=== PATIENT | female | born 2000 | race Two or more races ===

== ENCOUNTER 2023-02-01 14:18 | Emergency (ER) | payer MEDICAID ==
[~2023-02-01] VITALS: Ht 149.9 cm; Wt 65.8 kg
[2023-02-01 14:47] VITALS: BP 140/75; PULSE 80; RESP 16; TEMP 98.6; O2SAT 99
--- NOTE | 2023-02-01 16:54 | NUR ---
MANNEQUIN MOLDER ASSESSMENT REVIEWED BY LANDY RN; APPROVED
== END 2023-02-01 16:55 | disposition left against medical advice (07) ==
LOC: ER 14:19
DX: R21 Rash and other nonspecific skin eruption (principal); Z53.21 Procedure and treatment not carried out due to patient leaving prior to being seen by health care provider
CPT/HCPCS: 99281

== ENCOUNTER 2024-09-02 14:25 | Emergency (ER) | payer MEDICAID ==
[~2024-09-02] VITALS: Ht 149.9 cm; Wt 76.1 kg
--- NOTE | 2024-09-02 16:19 | ELECTROCARDIOGRAPH REPORT ---
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 Christian Stubbs Measurements Intervals [place] Rate: 102 P: 68 MS: 122 QRS: 20 QRSD: 89 T: 31 QT: 363 QTc: 473 Interpretive Statements Fast sinus arrhythmia Borderline T wave abnormalities Electronically Signed On 09-03-2024 6:49:[address] Christian Stubbs Please click the below link to view image of tracing.
--- NOTE | 2024-09-02 16:38 | Physician Documentation ---
History of Present Illness ~ Chief Complaint: Arm Pain Stated Complaint: LEFT ARM AND CHEST PAIN Time Seen by MD: 16:21 OK to notify your PCP?: Yes Source: patient Mode of Arrival: POV Exam Limitations: no limitations HPI Luz is a 24-year-old female presenting with left chest pain which radiates into her left arm. She has been experiencing this on and off for the past 2 years and sometimes it is the right chest wall. She is currently not having any symptoms as it has passed. She reports that she has these episodes the last about 5 minutes daily but are more frequent during certain times of her menstrual cycle. She takes deep breaths and tries to calm down and that gets episode does subside. She describes episode as chest tightness and shortness of breath and feeling impending doom. She reports having a history of anxiety but has not taken any medications for this. She believe she may have experienced a panic attack in the past. She denies any sudden onset/termination of tachycardia, palpitations or syncope. She has full range of motion of her extremities. She also has a ankle wrap on her right ankle after she stepped wrong when trying to walk and heels 3 days ago. She reports that the pain is improving and she is able to walk with no problem. Tetanus within 5 years: Yes Medication Reconciliation Allergies: Coded Allergies: No Known Allergies (Unverified , 02/01/23) Review of Systems All Other Systems at this time: Reviewed and Negative Physical Exam Vital Signs: RN Vital Signs have been reviewed: Yes, Temperature: 98.5, Source: Oral, Heart Rate: 90, Respiratory Rate: 18, BP: 143/75, Pulse Oximetry: 98, Weight: 76.090 Pulse Oximetry Reflects: adequate oxygenation Physical Exam General: Alert, no apparent distress. HEENT: PERRL, EOMI, no injection, moist mucous membranes. Neck: Full range of motion. Respiratory: Lungs clear, no respiratory distress. Chest: No accessory muscle use. Nontender to palpation Cardiovascular: Regular rate and rhythm, no murmurs. Gastrointestinal: Soft, nontender, nondistended. Bowels sounds present. Extremities: Normal range of motion, no deformity. Full range of motion of right ankle and upper extremities. Right ankle is nontender, good CSM, dorsalis pedis pulse 2 +. Neurologic: Oriented x4. Psychiatric: Normal mood and affect. Skin: Normal color, warm and dry. No edema, no ecchymosis. Progress Results/Orders Reviewed/noted all lab results: Yes Results/Orders Vital Signs 09/02/24 14:50 Temp 98.5 Pulse 90 Resp 18 B/P (MAP) 143/75 Pulse Ox 98 EKG/XRAY/CT/US/VASC/MRI EKG : Additional Comment Electrocardiogram: as interpreted by me; sinus tachycardia, no axis deviation, no acute ischemia, normal intervals, no pre-excitation pattern. Rate: 102 bpm. Medical Decision Making Additional info obtained from: old records Findings Luz is a 24-year-old female presenting with unilateral chest wall tightness and shortness of breath which lasts in 5 minute episodes and resolves when she tries to calm herself down with deep breaths. Her physical examination is reassuring and her EKG is normal. She is currently asymptomatic. She realizes that these episodes are worse during certain times of her menstrual cycle which she is currently finishing her menstrual cycle right now. She also reports having difficulty relaxing enough to sleep at night. We went over the 5 causes of chest pain such as from the heart, lungs, GI, musculoskeletal or stress/anxiety/worry. Using shared decision-making when reviewing the different causes and symptoms that go along she agrees that this is likely due to stress, anxiety, and worry. I have prescribed a 1 time dose of Atarax while here in the department and her mother will be picking her up. I will give her a prescription for Atarax as well that she can take when she is feeling the symptoms especially at nighttime. As far as her right ankle, it is improving and is no longer causing her pain. She has full range motion good pulses and CSM. I offered an x-ray of the ankle which she declined. She agrees with this discharge plan. She should return here for any new or worsening symptoms and follow up with her primary care provider within the next 3 days. Additional Comment Angina, [place], rib fracture, costochondritis, precordial catch syndrome. Departure Disposition: HOME / SELF CARE / HOMELESS Impression: Primary Impression: Anxiety Discharge Instructions: Generalized Anxiety Disorder, Adult Additional Instructions: You have been given a dose of Atarax while in our department. You have also been given a prescription for Atarax that you can take at home as needed when you were feeling anxious as well as at nighttime to help you sleep. Your right ankle appears to be healing well. Return back here for any new or worsening symptoms and please follow up with her primary care provider in the next 3 days. Referrals: NO PRIMARY CARE PROVIDER (PCP) Prescriptions Hydroxyzine Hcl* (Atarax*) 25 Mg Tablet 1 TAB PO Q8H for anxiety for 30 Days, #90 TAB Prov: KELLI FOSTER 09/02/24 Education Educated: Patient Educated regarding: diagnosis, treatment, prognosis, need for follow up Signature Scribe Signature: . Attestation: Scribed for Kelli Fosterp by Kelli Gamboa NP . 09/02/24 16:43 KELLI FOSTERP September 02, 2024 16:38
[2024-09-02] MEDS ORDERED: HYDR-3686 PO (16:43)
[2024-09-02] MEDS: hydrOXYzine 10 MG tablet PO ONE (17:00)
[2024-09-02 17:01] VITALS: BP 143/75; PULSE 90; RESP 16; TEMP 98; O2SAT 98
== END 2024-09-02 17:02 | disposition home or self-care (01) ==
LOC: ER 14:25
DX: F41.9 Anxiety disorder, unspecified (principal); R07.9 Chest pain, unspecified; R06.02 Shortness of breath
CPT/HCPCS: 93005; 99283